=== PATIENT | male | born 1955 | race Caucasian/White ===

== ENCOUNTER 2021-10-30 10:12 | Outpatient (CLI) | payer MEDICARE ==
[2021-10-30 10:34] LABS: BASOPHILS # (AUTO) 0.5 X10'3 (0-0.2); BASOPHILS % (AUTO) 0.3 % (0-1); PLATELET COUNT 142 X10'3 (140-440)
[2021-10-30 10:37] LABS: EOSINOPHILS # (AUTO) 0.3 X10'3 (0-0.9); EOSINOPHILS % (AUTO) 0.2 % (0-6); HEMATOCRIT 34.7 % (42.0-52.0); HEMOGLOBIN 11.4 g/dl (14.0-17.9); LYMPHOCYTES # (AUTO) 156.1 X10'3 (1.1-4.8); LYMPHOCYTES % (AUTO) 91.8 % (21-51); MEAN CORPUSCULAR HEMOGLOBIN 31.9 PG (27.0-31.0); MEAN CORPUSCULAR HGB CONC 32.9 g/dL (33.0-36.5); MEAN CORPUSCULAR VOLUME 96.8 FL (78-98); MEAN PLATELET VOLUME 7.9 FL (7.4-10.4); MONOCYTES # (AUTO) 6.9 X10'3 (0-0.9); MONOCYTES % (AUTO) 4.1 % (2-12); NEUTROPHILS # (AUTO) 6.1 X10'3 (1.8-7.7); NEUTROPHILS % (AUTO) 3.6 % (42-75); RED BLOOD COUNT 3.59 X10'6 (4.70-6.10); RED CELL DISTRIBUTION WIDTH 15.1 % (11.5-14.5)
[2021-10-30 11:42] LABS: WHITE BLOOD COUNT 169.8 X10'3 (4.5-11.0)
[2021-10-30 11:44] LABS: TOTAL CELLS COUNTED 100
[2021-10-30 11:45] LABS: PLATELET ESTIMATE NORMAL; SMUDGE CELLS 1+
== END 2021-10-30 23:59 | disposition home or self-care (01) ==
LOC: LAB 10:12
DX: C91.10 Chronic lymphocytic leukemia of B-cell type not having achieved remission (principal)
CPT/HCPCS: 36415; 85007; 85025